=== PATIENT | female | born 1985 | race Caucasian/White ===

== ENCOUNTER 2020-02-29 21:03 | Emergency (ER) | payer OTHER ==
[~2020-02-29] VITALS: Ht 154.9 cm; Wt 52.2 kg
[2020-02-29 21:04] VITALS: BP 109/62
[2020-02-29 21:32] LABS: URINE BILIRUBIN NEGATIVE (Negative); URINE BLOOD 3+ (Negative); URINE CLARITY CLEAR; URINE COLOR RED; URINE GLUCOSE-RANDOM* NEGATIVE (Negative); URINE KETONES 1+ (Negative); URINE LEUKOCYTES-REFLEX 2+ (Negative); URINE NITRITE-REFLEX NEGATIVE (Negative); URINE PROTEIN (DIPSTICK) 2+ (Negative); URINE SPECIFIC GRAVITY <= 1.005 (1.005-1.035); URINE UROBILINOGEN 0.2 E.U./dl (0.2-1.0)
[2020-02-29 21:39] LABS: CASTS None Seen /LPF (None Seen); CRYSTALS None Seen /LPF (None Seen)
[2020-02-29 21:40] LABS: BACTERIA-REFLEX 1-9 Few /HPF (None Seen); SQUAMOUS 0-3 Few /LPF (0-3); URINE RBC 0-2 Rare /HPF (0-2)
[2020-02-29] MEDS ORDERED: PYRIDIUM200 MG PO (21:40)
[2020-02-29] MEDS ORDERED: KEFLEX500 M1 PO (21:40)
== END 2020-02-29 21:48 | disposition home or self-care (01) ==
LOC: ER 21:03
PROVIDERS: Emergency Medicine
DX: N39.0 Urinary tract infection, site not specified (principal)

== ENCOUNTER 2020-03-26 00:49 | Emergency (ER) | payer OTHER ==
[~2020-03-26] VITALS: Ht 154.9 cm; Wt 52.2 kg
[~2020-03-26 00:49] MED LIST: KEFLEX500 M1 PO; PYRIDIUM200 MG PO
[2020-03-26 00:51] VITALS: BP 104/65
[2020-03-26] MEDS ORDERED: NOHOMEMEDICATIONS (01:05)
[2020-03-26 01:18] LABS: URINE CLARITY SL CLOUDY; URINE COLOR ORANGE
[2020-03-26 01:21] LABS: ICTOTEST (BILI CONFIRMATORY) Negative (Negative)
[2020-03-26 01:26] LABS: URINE REDUCING SUBSTANCE 0 %
[2020-03-26 01:30] LABS: BACTERIA-REFLEX >30 Many /HPF (None Seen); CASTS None Seen /LPF (None Seen); CRYSTALS None Seen /LPF (None Seen); MUCUS None Seen strn/LPF (None Seen); SQUAMOUS 0-3 Few /LPF (0-3); URINE RBC >20 Many /HPF (0-2); URINE WBC-REFLEX >25 Many /HPF (0-5)
[2020-03-26] MEDS ORDERED: BACTRIM DS TAB1 EACH PO (01:36)
[2020-03-26] MEDS ORDERED: PYRIDIUM200 MG PO (01:36)
== END 2020-03-26 02:03 | disposition home or self-care (01) ==
LOC: ER 00:49
PROVIDERS: Emergency Medicine
DX: N39.0 Urinary tract infection, site not specified (principal); Z79.899 Other long term (current) drug therapy

== ENCOUNTER 2021-07-23 04:00 | Emergency (ER) | payer OTHER ==
[~2021-07-23] VITALS: Ht 154.9 cm; Wt 49.9 kg
[~2021-07-23 04:00] MED LIST changes: +BACTRIM DS TAB1 EACH PO; +NOHOMEMEDICATIONS
[2021-07-23 04:02] VITALS: BP 84/58
[2021-07-23 05:20] LABS: ABSOLUTE NEUTROPHILS 4.3 thou/uL (1.4-8.2); BASOPHILS 0.3 % (0.0-2.0); HEMATOCRIT 31.4 % (37.0-47.0); HEMOGLOBIN 10.9 gm/dL (12.0-15.0); LYMPHOCYTES 12.3 % (24.0-44.0); MCH 30.6 pg (26.0-34.0); MCHC 34.6 g/dL (28.0-37.0); MCV 88.6 fL (80.0-100.0); PLATELET COUNT 166 thou/uL (150-400); POLYS 79.4 % (36.0-66.0); RBC 3.54 mil/uL (4.20-5.00); RDW 12.6 % (10.5-14.5); WBC 5.4 thou/uL (4.0-11.0)
[2021-07-23 05:31] LABS: ALBUMIN 2.9 g/dL (3.4-5.0); CALCIUM 7.4 mg/dL (8.5-10.1); CREATININE 0.5 mg/dL (0.6-1.0); POTASSIUM 3.2 mmol/L (3.5-5.1); TOTAL BILIRUBIN 0.4 mg/dL (0.2-1.0); TOTAL PROTEIN 5.9 g/dL (6.4-8.2)
[2021-07-23] MEDS ORDERED: ZOFRAN ODT4 MG PO (05:52)
[2021-07-24] MEDS ORDERED: PROMS25 WY RECTAL (05:03)
== END 2021-07-23 06:55 | disposition home or self-care (01) ==
LOC: ER 04:00
PROVIDERS: Emergency Medicine
DX: U07.1 COVID-19 (principal); R11.2 Nausea with vomiting, unspecified; R10.13 Epigastric pain

== ENCOUNTER 2021-07-24 04:33 | Emergency (ER) | payer OTHER ==
[~2021-07-24] VITALS: Ht 165.1 cm; Wt 55.8 kg
[~2021-07-24 04:33] MED LIST changes: +ZOFRAN ODT4 MG PO
[2021-07-24] MEDS ORDERED: PROMS25 WY RECTAL (05:03)
[2021-07-24 05:48] VITALS: BP 92/58
== END 2021-07-24 05:49 | disposition home or self-care (01) ==
LOC: ER 04:33
DX: U07.1 COVID-19 (principal); R11.2 Nausea with vomiting, unspecified; Z79.899 Other long term (current) drug therapy